=== PATIENT | male | born 1990 | race Two or more races ===

== ENCOUNTER 2016-11-09 12:21 | Emergency (ER) | payer OTHER ==
--- NOTE | ~2016-11-09 | CT4 ---
[facility] A Service of [facility] RADIOLOGY TEXT RESULTS PATIENT: LYNSEY GILLIAM LOCATION: [facility] : [birth year] UNIT #: [id number] AGE: [address]: Lorne Shirley SEX: M ORDER DR: [id number] [facility] [address] [place], [place] [address] [id number] MR#: [id number] Acc #: [id number] NAME: LYNSEY GILLIAM : 1990 SEX: M STUDY DATE/TIME: 11/09/2016 12:45 UNIT: [facility] ROOM: STUDY DESCRIPTION: CT Abd and Pelv Wo Cont Attending Physician: Lorne Shirley Ordering Physician: Ed Doctor [id number] [facility] Primary Care Physician: Danae Lyles MEDICAL IMAGING REPORT This report is preliminary unless electronic signature is present EXAM CT abdomen and pelvis 11/09/2016. INDICATIONS Dysuria and back pain for about 3 weeks. Pain is currently 4 out of 10. TECHNIQUE Axial images were obtained through the abdomen and pelvis without contrast. Multiplanar reformatted format were obtained. This CT exam was performed with one or more of the following radiation dose reduction techniques: automatic exposure control, adjustment of mA and/or kV according to patient size, and iterative reconstruction. COMPARISON Comparison is made with 10/03/2016. FINDINGS Abdomen: The lung bases remain clear. The gallbladder is normal. Scarring and atrophy of the left kidney appears stable. No renal or ureteral stones are seen and there is no hydronephrosis. Unenhanced solid organs are otherwise normal. Unopacified GI tract is normal. Pelvis: The appendix is normal. The remainder of the unopacified GI tract is normal as well. No lower ureteral stones are seen. Urinary bladder is normal. There is no free fluid. IMPRESSION 1. No acute findings in the abdomen and pelvis. 2. Stable scarring. Atrophy of the left kidney. No renal or ureteral stones on either side. No hydronephrosis. 3. Normal unopacified GI tract including the appendix. [facility] A Service of [facility] RADIOLOGY TEXT RESULTS PATIENT: LYNSEY GILLIAM LOCATION: [facility] : [birth year] UNIT #: [id number] AGE: [address]: Lorne Shirley SEX: M ORDER DR: Dictated by... Al Chen Jr., M.D. THIS IS AN ELECTRONICALLY VERIFIED REPORT Al Chen Jr., M.D. at 11/10/2016 11:30 AM ASHOK/di TD: 11/09/2016 16:36 JOB #: [id number] MEDICAL IMAGING REPORT Page 1 of 1 COPY
[2016-11-09 11:46] LABS: URINE SOURCE CLEAN CATCH
[2016-11-09 11:54] LABS: URINE APPEARANCE CLEAR; URINE BILIRUBIN NEG (NEG); URINE BLOOD 2+ (NEG); URINE COLOR YELLOW; URINE GLUCOSE NEG (NEG); URINE KETONE 1+ (NEG); URINE LEUKOCYTE ESTERASE 1+ (NEG); URINE NITRATE NEG (NEG); URINE PROTEIN NEG (NEG); URINE SPECIFIC GRAVITY 1.017 (1.003-1.035)
[2016-11-09 11:57] LABS: URINE BACTERIA AUWI NEG (NEGATIVE); URINE SQUAMOUS EPITHELIAL CELL NONE SEEN /[HPF]
[2016-11-09 11:59] LABS: CULTURE INDICATED? NO
[2016-11-11 19:43] LABS: CHLAMYDIA TRACH Not Detected (Not Detected); N GONOR Not Detected (Not Detected)
== END 2016-11-09 14:55 | disposition home or self-care (01) ==
LOC: CFTX 12:21
PROVIDERS: Nurse Practitioner
DX: N34.2 Other urethritis (principal); Z20.2 Contact with and (suspected) exposure to infections with a predominantly sexual mode of transmission
CPT/HCPCS: 74176; 81003; 87491; 87591; 96372; 99284; J0696; J1885